=== PATIENT | male | born 1950 | race Caucasian/White ===

== ENCOUNTER 2018-04-01 11:23 | Outpatient (CLI) | payer MEDICARE ==
--- NOTE | 2018-04-01 14:38 | XRAY Report ---
Procedure Date: 04/01/2018 Accession Number: [id number] / [id number] Procedure: XR - Wrist 4 View RT CPT Code: FULL RESULT: EXAM: RIGHT WRIST RADIOGRAPHY EXAM DATE: 04/01/2018 11:51 AM. CLINICAL HISTORY: DONAVAN LEON 03/30/18. COMPARISON: None. TECHNIQUE: 4 views. FINDINGS: Bones: There is cortical irregularity along the dorsal distal radius on lateral view. Cystic changes seen in the carpals. Joints: Osteophyte first metacarpal carpal joint space No subluxations. Soft Tissues: Normal. No soft tissue swelling. IMPRESSION: Cortical irregularity dorsal distal radius. Possible fracture versus spur RADIA
== END 2018-04-01 11:24 | disposition home or self-care (01) ==
LOC: DI 11:23
PROVIDERS: ATTEND Family Medicine
DX: S62.91XA Unspecified fracture of right hand, initial encounter for closed fracture (principal)

== ENCOUNTER 2018-07-02 10:22 | Day surgery (SDC) | payer MEDICARE ==
[~2018-07-02 10:22] MED LIST: ceFAZolin 2 GM/50 ML 2 GM/50 ML BAG IV ONE
[2018-07-02] MEDS ORDERED: LACTATED RINGERS 1,000 ML IV ONE (11:01)
--- NOTE | 2018-07-02 11:10 | ANESTHESIA ---
Pre-Anesthesia VS, & Labs - Diagnosis R inguinal hernia - Procedure R inguinal hernia repair Vital Signs: Temp Pulse Resp BP Pulse Ox 36.4 C L 64 18 148/77 H 97 07/02/18 10:39 07/02/18 10:39 07/02/18 10:39 07/02/18 10:39 07/02/18 10:39 Height 5 ft 10.5 in Weight (kg) 79 kg - NPO >8 hours Last Fluid Intake: black coffee@0700 Home Medications and Allergies Home Medications: Ambulatory Orders No Known Home Medications 07/02/18 Allergies/Adverse Reactions: Allergies Allergy/AdvReac Type Severity Reaction Status Date / Time No Known Drug Allergies Allergy Verified 07/02/18 11:09 Anes History & Medical History - Medical History Pulmonary: reports: None Urinary: reports: None Musculoskeletal: reports: None Endocrine/Autoimmune: reports: None Skin: reports: None - Surgical History General: Colonoscopy Orthopedic: Arthroscopic surgery Exam General: Alert, Oriented x3, Cooperative Dental: WNL Mouth Opening: Greater than 4 Fingerbreadths Neck Mobility: Normal Mallampati classification: II Thyromental Distance: greater than 6 cm Respiratory: Lungs clear, Normal breath sounds, No respiratory distress Cardiovascular: Regular rate Neurological: Normal speech Mental/Cognitive Status: Alert/Oriented X3 Cognitive Status: Within normal limits Plan Anesthesia Type: General Consent for Procedure(s) Verified and Reviewed: Yes Code Status: Attempt Resuscitation ASA classification: 2-Mild systemic disease Is this case an emergency?: No
[2018-07-02] MEDS ORDERED: BUPIVACAINE 0.5% PF 30 ML VIAL ONE (11:31)
[2018-07-02] MEDS ORDERED: BUPIVACAINE 0.5%-EPI 1:200000 PF 30 ML VIAL ONE (11:33)
[2018-07-02] MEDS ORDERED: BUPIVACAINE 0.5%-EPI 1:200000 PF 30 ML VIAL SUBQ ONE ×2 (12:24)
[2018-07-02] MEDS ORDERED: ONDANSETRON 4 MG/2 ML VIAL IVP PRN (13:23)
[2018-07-02] MEDS ORDERED: HYDROcod/ACETAM 5/325 MG TABLET PO PRN (13:23)
[2018-07-02] MEDS ORDERED: HYDROmorphone 0.5 MG/0.5 ML SYRINGE IVP PRN (13:23)
--- NOTE | 2018-07-02 13:29 | OPERATIVE REPORT ---
Operative Report - General Procedure Date: 07/02/18 Planned Procedure: RIGHT inguinal hernia Pre-Op Diagnosis: RIGHT inguinal herniorrhaphy Procedure Performed: RIGHT indirect inguinal herniorrhaphy with mesh Post Op Diagnosis: RIGHT indirect inguinal herniorrhaphy - Procedure Note Primary Surgeon: Judah Marroquin MD Anesthesia Provider: Ralph Velásquez CRNA Anesthesia Technique: General LMA, Local (30 mL 1/2% marcaine) IV Fluids (mL): 500 Estimated Blood Loss (mL): 5 Complications: None. - Other Other Information/Narrative: OPERATIVE DESCRIPTION/REPORT: After verbal and written informed consent was obtained detailing the risks of infection, bleeding requiring transfusion with its risks, nerve injury, and , and after I met with the patient confirming the surgery and the site of the surgery and after initialing the site of the surgery with a surgical marker, the patient was brought to the operative suite and placed supine on the operating table. Great care was taken to avoid pressure points to prevent pressure necrosis or nerve injury. Monitoring devices were applied along with TEDs and pneumatic compressive stockings (to prevent DVT). The patient received preoperative antibiotics for surgical prophylaxis. Ralph Velásquez CRNA sedated and anesthetized the patient for the entire procedure. The patient was prepped and draped in the usual sterile manner. With the patient draped my initials were clearly visible. A "time in" then confirmed that the patient was identified with 3 identifiers (name, date and medical record number), the history and physical was in the chart, the signed consent confirming the procedure was in the chart, the patient was in the correct position, the aforementioned prophylactic measures were in place or given, we had the correct personnel and equipment to complete the procedure and that anesthesia, surgery and nursing were given an opportunity to express any concerns. With the agreement of everyone in the room, we proceeded with the operation. A standard inguinal incision was made and dissection was carried down to the external oblique aponeurosis using a combination of Metzenbaum scissors and Bovie electrocautery. The external oblique aponeurosis was cleared of overlying adherent tissue, and the external ring was delineated. The external oblique was the incised with a scalpel and this incision was carried out to the external ring using Metzenbaum scissors. Having exposed the inguinal canal, the cord structures were from the canal using blunt dissection, and a Atwood drain was placed around the cord structures at the level of the pubic tubercle. This Alireza drain was then used to retract the cord structures as needed. Adherent cremasteric muscle was dissected free from the cord using Bovie electrocautery. The cord was then explored using a combination of sharp and blunt dissection, and the sac was found anteromedially to the cord structures. The sac was dissected free from the cord structures using a combination of blunt dissection and Bovie electrocautery. Once preperitoneal fat was encountered, the dissection stopped and the sac was high ligated with a 2-0 PDS, transected, the stump cauterized and allowed to retract back into the abdominal cavity and a medium Covidien plug (Ref# [id number], Lot# [id number], use date 2023-05-12) inserted into the internal ring. The plug was secured to the internal ring by interrupted 2-0 PDS sutures. The Covidien enlay patch was then placed on the floor of the inguinal canal and secured in place using interrupted 0 PDS sutures to the conjoined tendon superiorly, pubic tubercle medially, and shelving edge inferiorly. By reinforcing the floor with the enlay patch, a new internal ring was thus formed. The Alireza drain was removed. The wound was then irrigated using sterile saline, and hemostasis was obtained using Bovie electrocautery. The incision in the external oblique was approximated using a 3-0 Vicryl in a running fashion, thus reforming the external ring. The fascia and skin was then injected with the 1/2% marcaine for group home pain control. The skin incision was approximated with 4-0 Monocryl in a subcuticular fashion. The skin was prepped with benzoin and steristrips were applied. At this point a time out was performed that confirmed that all the counts were correct, the procedure that was performed, the blood loss, the IV fluids administered, and the patients condition. A dressing was then applied. Gentle downward traction ensured that the testes were well seated in the scrotum. Having tolerated the procedure well, the patient was taken to short stay in good and stable condition. [employer] disclaimer: This document was created in part using voice recognition technology. Because of the inherent limitations of the system ([employer]'s [employer] user manual states that the licensee understands that speech recognition is a statistical process and that recognition errors are inherent in the process), occasional same sounding word substitutions and grammatical errors do occur and persist despite proofreading. Please read this document for context.
[2018-07-02] MEDS ORDERED: HYDROcod/ACETAM 5/325 MG TABLET ONE (14:29)
[2018-07-02 15:04] VITALS: BP 132/78
== END 2018-07-02 10:23 | disposition home or self-care (01) ==
LOC: SDS 10:22
PROVIDERS: ATTEND Surgery
PROC: 0YU50JZ Supplement Right Inguinal Region with Synthetic Substitute, Open Approach (ICD-10-PCS; principal; 2018-07-02 10:30)
DX: K40.90 Unilateral inguinal hernia, without obstruction or gangrene, not specified as recurrent (principal); F17.210 Nicotine dependence, cigarettes, uncomplicated
CPT/HCPCS: 49505; A9270; J0690; J7120

== ENCOUNTER 2019-01-04 11:40 | Outpatient (CLI) | payer MEDICARE ==
--- NOTE | 2019-01-06 04:14 | XRAY Report ---
Reason: LT KNEE PAIN Procedure Date: 01/04/2019 Accession Number: [id number] / [id number] Procedure: XR - Knee 3 View LT CPT Code: FULL RESULT: EXAM: LEFT KNEE RADIOGRAPHY EXAM DATE: 01/04/2019 12:03 PM. CLINICAL HISTORY: Left KNEE PAIN. COMPARISON: WRIST 4 VIEW RT 04/01/2018 11:40 AM. TECHNIQUE: 3 views. FINDINGS: Bones: Normal. No fractures or bone lesions. Joints: No subluxation. Tiny posterior patellar osteophyte. Large knee joint effusion. Soft Tissues: Normal. No soft tissue swelling. IMPRESSION: Large knee joint effusion. Tiny posterior patellar osteophyte. No evidence for acute fracture. RADIA
== END 2019-01-04 11:41 | disposition home or self-care (01) ==
LOC: DI 11:40
PROVIDERS: ATTEND Family Medicine
DX: M25.562 Pain in left knee (principal)

== ENCOUNTER 2023-01-22 17:25 | Outpatient (CLI) | payer MEDICARE ==
--- NOTE | 2023-01-23 10:46 | XRAY Report ---
PROCEDURE: Lumbar Spine 2 View INDICATIONS: LOW BACK PAIN TECHNIQUE: 3 views of the lumbar spine were acquired. COMPARISON: None. FINDINGS: Bones: Rightward spinal curvature. 1.5 cm of L5 on S1 anterolisthesis, with pars defects. Moderate de generative changes elsewhere with disc space height loss, facet arthropathy, and osteophyte formation . No definitely acute vertebral body compression fracture. Soft tissues: Prominent bowel gas and stool is seen. Hip degenerative changes. No suspicious calcific ations. There are vascular calcifications. IMPRESSION: Moderate degenerative changes. Likely chronic 1.5 cm of L5 on S1 anterolisthesis with pars defects. I f there is high concern for further derangement, consider MRI evaluation. Reviewed by: Ren Cárdenas MD on 01/23/2023 10:45 AM PDT Approved by: Ren Cárdenas MD on 01/23/2023 10:45 AM PDT Station ID: [id number]
--- NOTE | 2023-01-23 15:48 | XRAY Report ---
PROCEDURE: Hip w/Pelvis 2-3V RT INDICATIONS: LOW BACK PX TECHNIQUE: AP pelvis with lateral view(s) of the right hip(s). COMPARISON: None. FINDINGS: Bones: No fractures or dislocations. Degenerative changes are present within the lower lumbar spine . Moderate bilateral degenerative changes present within the hip joints bilaterally. There is an ill- defined area of sclerosis overlying the medial aspect of the left iliac bone. No priors are available for comparison. Soft tissues: No suspicious soft tissue calcifications or masses. IMPRESSION: Arthritic narrowing within the lower lumbar spine as well as hips. Focus of sclerosis overlying the medial left iliac bone. This is indeterminate. While this could repr esent a bone island, no priors are available for comparison. As clinically indicated, further evaluat ion with bone scan or CT may be obtained. Reviewed by: Yoko Bowman MD on 01/23/2023 3:47 PM PDT Approved by: Yoko Bowman MD on 01/23/2023 3:47 PM PDT Station ID: [id number]
== END 2023-01-22 17:26 | disposition home or self-care (01) ==
LOC: DI 17:25
PROVIDERS: ATTEND Student in an Organized Health Care Education/Training Program
DX: M47.816 Spondylosis without myelopathy or radiculopathy, lumbar region (principal); M43.17 Spondylolisthesis, lumbosacral region; M16.0 Bilateral primary osteoarthritis of hip

== ENCOUNTER 2023-12-05 14:10 | Outpatient (CLI) | payer MEDICARE ==
--- NOTE | 2023-12-05 16:49 | XRAY Report ---
PROCEDURE: Wrist 3+V BL INDICATIONS: POLYARTHRITIS TECHNIQUE: 3 views of the wrist were acquired. COMPARISON: None. FINDINGS: Bones: No fractures or dislocations. Osteoarthritic changes are noted throughout bilateral wrists mo re notably in bilateral first CMC joints and radiocarpal joints slightly worse on the right side. No suspicious bony lesions. Soft tissues: No suspicious soft tissue calcifications or masses. IMPRESSION: No acute bony abnormality. 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 Reviewed by: Torsten Jones MD on 12/05/2023 4:48 PM PDT Approved by: Torsten Jones MD on 12/05/2023 4:48 PM PDT Station ID: [id number]
--- NOTE | 2023-12-05 16:51 | XRAY Report ---
PROCEDURE: Hand 3+V BL INDICATIONS: POLYARTHRITIS TECHNIQUE: 3 views of the hand(s) acquired. COMPARISON: None. FINDINGS: Bones: No fractures or dislocations. Osteoarthritic changes are noted throughout bilateral hand and wrist joints more notably involving radial aspect of bilateral wrists and bilateral first MCP joints . No gross bony erosive changes are seen. No suspicious bony lesions. Soft tissues: No suspicious soft tissue calcifications or masses. 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 No acute fracture or disloca tion. No gross bony erosive changes. Reviewed by: Torsten Jones MD on 12/05/2023 4:49 PM PDT Approved by: Torsten Jones MD on 12/05/2023 4:49 PM PDT Station ID: [id number]
== END 2023-12-05 14:11 | disposition home or self-care (01) ==
LOC: DI 14:10
PROVIDERS: ATTEND Internal Medicine
DX: M19.031 Primary osteoarthritis, right wrist (principal); M19.032 Primary osteoarthritis, left wrist; M19.041 Primary osteoarthritis, right hand; M19.042 Primary osteoarthritis, left hand